=== PATIENT | male | born 1980 | race Caucasian/White ===

== ENCOUNTER → 2017-04-24 14:34 | Outpatient (CLI) | payer BC ==
[2017-04-24 16:06] LABS: ERYTHROCYTE SEDIMENTATION RATE 1 mm/hr (0-15)
== END | disposition home or self-care (01) ==
LOC: D.LAB 14:34
PROVIDERS: Internal Medicine Gastroenterology
DX: K58.9 Irritable bowel syndrome, unspecified (principal); R19.7 Diarrhea, unspecified